=== PATIENT | female | born 1945 | race Caucasian/White ===

== ENCOUNTER 2016-08-14 20:26 | Emergency (ER) | payer MEDICARE, MEDICAID ==
[2016-08-14] MEDS ORDERED: ONDANSETRON 4 MG TAB.RAPDIS PO ONE (23:35)
[2016-08-14] MEDS ORDERED: OXYCODONE-ACETAMINOPHEN 5-325 MG TABLET PO ONE (23:35)
--- NOTE | 2016-08-14 23:43 | ER Document Report ---
ED General - General Chief Complaint: Nose Pain Stated Complaint: NOSE BLEED Mode of Arrival: Ambulatory Information source: Patient, Relative - daughter Notes: Patient presents to the emergency department with report of posterior [facility]bleed [facility]. Patient reports she was sitting out in the rain watching reports when her nose started gushing from both ears. Patient went to an urgent care with a contacted her daughter to take her to the hospital. She reports that she was having blood clots the size of hamburgers. [facility] a nasal tampon in her right nare. The left nare stopped bleeding. Patient presents to this emergency tonight because she reports her nose hurts the tampon is very painful and it is falling out now. She also reports that she had very high blood pressure last night, it was 220/108 at discharge and was not treated. Patient reports she has a history of high blood pressure from years ago but does not like doctors so she does not have a provider. Patient also reports that last week she fell and has a sore tailbone, reports it hurts to sit. Patient also complains of a rash under her abdominal fold. Denies other symptoms such as fever vomiting diarrhea headache cough or pain with void. TRAVEL OUTSIDE OF THE [place] IN LAST 30 DAYS: No - HPI Onset: Yesterday Quality of pain: Achy, Throbbing Severity: Moderate Pain Level: 3 Associated symptoms: None Exacerbated by: Sitting Relieved by: Denies Similar symptoms previously: Yes Recently seen / treated by doctor: Yes - Related Data Allergies/Adverse Reactions: codeine Allergy (Verified 08/14/16 20:34) red dye Allergy (Verified 08/14/16 20:34) Past Medical History - General Information source: Patient, Relative - [facility] - Social History Smoking Status: Former Smoker Cigarette use (# per day): No Frequency of alcohol use: None Drug Abuse: None Lives with: Alone Family History: None Patient has suicidal ideation: No Patient has homicidal ideation: No - Past Medical History Cardiac Medical History: Reports: Hx Hypertension - no medication Endocrine Medical History: Reports: Hx Diabetes Mellitus Type 2 - no medication Renal/ Medical History: Denies: Hx Peritoneal Dialysis Past Surgical History: Reports: Hx Section, Hx Orthopedic Surgery Review of Systems - Review of Systems Notes: Review HPI for review of systems., All other systems negative Physical Exam - Vital signs Vitals: Temp Pulse Resp BP Pulse Ox 98.2 F 90 19 220/96 H 99 08/14/16 20:34 08/14/16 20:34 08/14/16 20:34 08/14/16 20:34 08/14/16 20:34 - Notes Notes: PHYSICAL EXAMINATION: GENERAL: nontoxic looking HEAD: Atraumatic, normocephalic. EYES: Pupils equal round and reactive to light, extraocular movements intact, sclera anicteric, conjunctiva are normal. ENT: nasal tampon in right nare, no active bleeding, no septal tenderness Moist mucous membranes. NECK: Normal range of motion, supple without lymphadenopathy LUNGS: CTAB and equal. No wheezes rales or rhonchi. HEART: Regular rate and rhythm without murmurs ABDOMEN: Soft, no tenderness. No guarding, no rebound EXTREMITIES: Normal range of motion, no pitting edema. No cyanosis. NEUROLOGICAL: Cranial nerves grossly intact. Normal sensory/motor exams. PSYCH: Normal mood, normal affect. SKIN: Warm, Dry, normal turgor, no rashes or lesions noted Course - Re-evaluation Re-evalutation: 08/14/16 23:43 Patient offered something for pain, accepted Percocet. Reports that she has taken it before without any problems. Her daughter is here to drive her home. 08/15/16 01:43 Patient is nauseated since provider with Percocet for pain. She reports pain is gone but is very nauseated she's received Zofran 8 mg without relief of symptoms will not attempt Phenergan suppository. 08/15/16 0 neg fracture, Consulted Dr. Corona who advises and not to remove the tampon. Patient instructed on the dangers of removing the nasal tampon. Instructed on Ativan. Instructed to sleep in up right position and follow-up with ENT on Tuesday. Patient reports nausea is better. Patient reports no pain since Percocet. She verbalized understanding to all instructions. Patient was advised on the importance of getting her blood pressure under control. She was advised to have a full physical. She verbalized understanding to all instructions. - Vital Signs Vital signs: Temp Pulse Resp BP Pulse Ox 98.2 F 76 16 184/75 H 92 08/14/16 20:36 08/15/16 02:25 08/15/16 00:59 08/15/16 02:25 08/15/16 02:25 - Diagnostic Test Radiology reviewed: Image reviewed, Reports reviewed Discharge - Discharge Clinical Impression: Tailbone injury, Nasal pain, elevated blood pressure reading Condition: Stable Disposition: HOME, SELF-CARE Instructions: ENT, Benzodiazepines (OM), Antinausea Medication ([facility]) Additional Instructions: *You have been evaluated for nasal pain, elevated blood pressure reading, tailbone injury *Take medications as prescribed *Follow up with the ENT Tuesday *Follow up with primary care provider within one week for a full physical and evaluation. *Sleep in a recliner, do not remove the nasal tampon, do not blow your nose *Return to ED for worsening condition, changes, needs Monitor your blood pressure. Your blood pressure was elevated today. This may be because you were anxious, in pain or because you need medication. It is important to follow up with your primary care provider for full evaluation. Prescriptions: Lorazepam [Ativan 0.5 mg Tablet] 0.5 mg PO Q4 PRN #15 tab PRN Reason: Promethazine HCl [Phenergan 25 mg Tablet] 25 - 50 mg PO ASDIR PRN #12 tablet PRN Reason: Forms: Elevated Blood Pressure
[2016-08-15] MEDS ORDERED: ONDANSETRON 4 MG TAB.RAPDIS PO ONE (00:49)
[2016-08-15] MEDS ORDERED: PROMETHAZINE HCL 25 MG SUPP.RECT PR ONE (01:43)
[2016-08-15 02:28] VITALS: BP 184/75
[2016-08-15] MEDS ORDERED: CEPHALEXIN 500 MG CAPSULE PO ONE (02:37)
== END 2016-08-15 02:53 | disposition home or self-care (01) ==
LOC: ER 20:26
DX: J34.89 Other specified disorders of nose and nasal sinuses (principal); R04.0 Epistaxis; Z98.890 Other specified postprocedural states; S39.92XA Unspecified injury of lower back, initial encounter; W19.XXXA Unspecified fall, initial encounter; I10 Essential (primary) hypertension; R21 Rash and other nonspecific skin eruption; E11.9 Type 2 diabetes mellitus without complications; Z88.5 Allergy status to narcotic agent; Z87.891 Personal history of nicotine dependence; R11.0 Nausea
CPT/HCPCS: 99283; 72220; A9270 ×5; J3490; S0119